=== PATIENT | female | born 1985 | race African-American/Black ===

== ENCOUNTER 2017-09-15 21:09 | Emergency (ER) | payer MEDICAID ==
[~2017-09-15] VITALS: Ht 170.2 cm; Wt 68.0 kg
[2017-09-15 21:26] VITALS: BP 129/83
[2017-09-15 22:39] LABS: Basophils # (auto) 0 uL; Basophils % (auto) 0.5 % (0.0-2.0); Eosinophils # (auto) 0.1 uL; Eosinophils % (auto) 1.4 % (0.0-7.0); Hematocrit 42.8 % (36.0-46.0); Hemoglobin 14.3 g/dL (12.2-16.2); Lymphocytes % (auto) 23.3 % (10.0-50.0); Mean Corpuscular Hemoglobin 30.8 pg (28.0-32.0); Mean Corpuscular Hgb Conc. 33.4 g/dL (32.0-36.0); Mean Corpuscular Volume 92.2 fL (80.0-100.0); Monocytes # (auto) 0.6 uL; Monocytes % (auto) 7.2 % (0.0-12.0); Neutrophils # (auto) 5.7 uL; Neutrophils % (auto) 67.6 % (37.0-80.0); Nucleated Red Blood Cells % 0.1 %; Platelet Count (auto) 199 10^3/uL (140-450); Red Blood Cells 4.64 10^6/uL (4.0-5.20); Red Cell Distribution Width 14.4 % (11.8-14.3); White Blood Cell 8.5 10^3/uL (4.4-10.8)
[2017-09-15 22:39] LABS: Urine Bacteria NONE SEEN /hpf (None Seen); Urine Blood 1+ /uL (Negative); Urine Specific Gravity 1.002 (1.001-1.035); Urine WBC <1 /hpf (0 - 5)
[2017-09-15 22:48] LABS: Albumin 4.1 g/dL (3.4-5.0); BUN/Creatinine Ratio 8.1; Calcium 8.9 mg/dL (8.5-10.1); Potassium 3.3 mmol/L (3.5-5.1)
[2017-09-15 22:51] LABS: Bilirubin, Total 0.4 mg/dL (0.2-1.0); Total Protein 7.6 g/dL (6.4-8.2)
== END 2017-09-16 02:50 | disposition home or self-care (01) ==
LOC: EDBD 21:09 → ER 21:19
DX: O20.8 Other hemorrhage in early pregnancy (principal); Z3A.08 8 weeks gestation of pregnancy
CPT/HCPCS: 36415; 76801; 80053; 81001; 84702; 85025

== ENCOUNTER 2023-08-09 23:28 | Emergency (ER) | payer MEDICAID ==
[~2023-08-09] VITALS: Ht 157.5 cm; Wt 56.8 kg
[2023-08-10] MEDS ORDERED: ACET500T58 PO (02:24)
[2023-08-10] MEDS ORDERED: ACETAMINOPHEN 325 MG TAB PO ONE (02:30)
[2023-08-10 02:46] LABS: Urine Bacteria NONE SEEN /hpf (None Seen); Urine Blood TRACE /uL (Negative); Urine Clarity HAZY (Clear); Urine Color Yellow (Yellow); Urine Mucus MODERATE (None Seen); Urine Protein, UAD 3+ (Negative); Urine Specific Gravity 1.047 (1.001-1.035); Urine Sperm PRESENT /hpf (None Seen); Urine WBC 12 /hpf (0 - 5)
[2023-08-10 03:23] VITALS: BP 108/72; PULSE 98; RESP 20; TEMP 98.6; O2SAT 97
== END 2023-08-10 03:26 | disposition home or self-care (01) ==
LOC: ER 23:28 → EDBD 23:28 → ER 08-10 03:24
DX: S39.012A Strain of muscle, fascia and tendon of lower back, initial encounter (principal); O26.891 Other specified pregnancy related conditions, first trimester; Z79.899 Other long term (current) drug therapy; Z3A.01 Less than 8 weeks gestation of pregnancy
CPT/HCPCS: 81001; 81025